=== PATIENT | male | born 1945 | race Caucasian/White ===

== ENCOUNTER → 2020-01-26 | Outpatient (CLI) | payer OTHER ==
[~2020-01-26] VITALS: Ht 182.9 cm; Wt 77.1 kg
[~2020-01-26] MED LIST: ELIQUIS5 MG PO; FLEXERIL PO; FLOMAX0.4 MG PO; NORVASC5 M1 PO; TYLENOL ARTHRI650 MG PO
--- NOTE | ~2020-01-26 | HPC ---
[facility] [address] [place] [address] PAIN MANAGEMENT CONSULTATION Name: MINH ANTONIO Room #: REG DINORA Sin.#: [id number] Admission: 01/26/20 Attend Phys: Kenan Burger MD Discharge: Date of : 43 Report #: [id number] THIS REPORT FOR: cc: Avi Anaya MD,Avi Burger,Kenan Butcher MD ~ CC: Avi Burger DATE OF SERVICE: 01/26/2020 CHIEF COMPLAINT: Low back pain radiating into both legs. 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 He likes to drive his heavy equipment and has a C7 dozer 230 horse power! Over the course of last year, this gentleman who has been very active all his life has started to experience pain that radiates down into his legs from his mid back. He scores his pain as an 8 or 9. He has some claudication like symptoms. Over the last 3 months, the pain has gotten much worse. Pain drawing shows pain in the L5-S1 distribution. An MRI scan was performed and was reviewed today in the clinic. It shows multiple levels of degenerative disease with severe spinal stenosis and left lateral recess stenosis at L2-L3, impinging on the left nerve roots. There is also severe spinal stenosis at L3-L4 and moderate spinal stenosis at L4-L5. Impingement of descending nerve roots is seen at each of these levels. MEDICATIONS: Eliquis, amlodipine, tamsulosin, cyclobenzaprine, Tylenol. ALLERGIES: None. PAST MEDICAL HISTORY: Hypertension and some renal problems as he describes it. There were stents placed and stones removed. Musculoskeletal is positive for rotator cuff surgery with Dr. Juan Herron in 2009 and an anterior cervical diskectomy and fusion performed in 2017 at [facility]. REVIEW OF SYSTEMS: Positive for some dyspnea on exertion, frequent urination and nocturia with incontinence on occasion. SOCIAL HISTORY: Active white. Denies use of tobacco, drinks alcohol, 1 glass of wine or beer a few times a week, not nightly. PHYSICAL EXAMINATION: [facility] [address] [place] [address] PAIN MANAGEMENT CONSULTATION Name: MINH ANTONIO Room #: REG [facility].#: [id number] Admission: 01/26/20 Attend Phys: Kenan Burger MD Discharge: Date of : 43 Report #: [id number] GENERAL: He is a very pleasant, outgoing 74-year-old gentleman. Moves independently from sitting to standing position. His gait is antalgic. He has difficulty straightening. VITAL SIGNS: Blood pressure is 138/71, heart rate 62, respirations 16, O2 sat 99. He is 6 feet tall, 170 pounds with a BMI of 23.1. CHEST: Clear. CARDIAC: Rhythm was regular, without any audible murmur or atrial fibrillation. It should be noted that he had an episode of atrial fibrillation in July, was placed on Eliquis. He has been stable since that time without recurring evidence of atrial fibrillation. ABDOMEN: Soft. MUSCULOSKELETAL: Examination of the spine reveals mild tenderness across the lumbosacral segment. Bilateral straight leg raising discomfort, which reproduces some pain into the lateral thigh and hip. IMPRESSION: Severe spinal stenosis, multilevel. RECOMMENDATION: We need to take him off his Eliquis for at least 3 days and I will be glad to trial an epidural steroid injection. If pain relief is substantial and with good duration, we can continue these in the future. Followup visit planned early next week for epidural. Dr. Umaña has suggested a possible need for multilevel decompression, but would still like to avoid that. Hopefully, injections will help. Multilevel decompression might be indicated. By: [id number] Kenan Burger MD /nt
[2020-01-26 13:22] VITALS: BP 138/71
--- NOTE | 2020-01-26 13:56 | NUR ---
Pain Clinic Assessment: 1. History of Osteoarthritis: spine History of Rheumatoid Arthritis: Not Applicable 2. Height: 6 ft. 0 in. 182.9 cm. Weight: 170.0 lb. oz. 77.112 kg. Patient's BMI: 23.1 3. Vital Signs: BP: 138/71 Pulse: 62 Resp: 16 Temp: 02 Sat: 99 ECG Mon: 4. Pain Intensity: 8-9 5. Fall Risk: Dizziness: N Needs help standing or walking: N Fallen in the last 3 months: N Fall risk comments: 6. Patient on Blood Thinner: eliquis 7. History of Hypertension: Y 8. Opioid Therapy greater than 6 weeks: N Opiate Contract Signed: 9. Risk Assessment Tool Provided: low-0 10. Functional Assessment Tool: 11. Recreational Drug Use: Never Drug Type: Tobacco Use: Never Smoker Tobacco Type: Amount or Packs/day: How Many Years: Alcohol Use: Yes Frequency: Quant: 1 GLASS WINE OR 1 BEER NOT DAILY
== END ==
LOC: PAIN 07:03
DX: M48.061 Spinal stenosis, lumbar region without neurogenic claudication (principal); Z79.899 Other long term (current) drug therapy

== ENCOUNTER → 2020-01-30 | Outpatient (CLI) | payer OTHER ==
[~2020-01-30] VITALS: Ht 182.9 cm; Wt 80.0 kg
--- NOTE | ~2020-01-30 | HPC ---
[facility] [place] [address] PAIN MANAGEMENT CONSULTATION Name: MINH ANTONIO Room #: REG DINORA Sin.#: [id number] Admission: 01/30/20 Attend Phys: Kenan Burger MD Discharge: Date of : 43 Report #: [id number] THIS REPORT FOR: cc: Avi Anaya MD,Avi Burger,Kenan Butcher MD ~ CC: Avi Burger DATE OF SERVICE: 01/30/2020 Followup visit for epidural injection. I saw the patient just last week. He is here now 4 days later for epidural steroid injection under fluoroscopic guidance. I reviewed my report from last week and I have reviewed his x-rays. Fairly significant tight severe spinal stenosis, multilevel. We will inject him today at L3-4. Potential benefits and risks were discussed with the patient. He is anxious to proceed. PROCEDURE: After informed consent, he was taken to the fluoroscopic suite, placed in the prone position. Skin was prepped at L3-L4. Using biplanar fluoroscopic views, I advanced needle into the epidural space in the first attempt using loss of resistance. A 0.25 mL of Omnipaque was injected and spread of dye in the epidural space, was seen at midline. It was then followed by a slow injection of 3 mL of 0.5% lidocaine mixed with 80 mg of triamcinolone. He tolerated the procedure well. There were no complications. It was uncomfortable to inject into this area of tight stenosis, but hopefully good spread was achieved through the areas of stenosis. Followup visit planned in 1-2 months. By: 1400 [id number] Kenan Burger MD /nt
[2020-01-30 13:23] VITALS: BP 118/72
--- NOTE | 2020-01-30 13:33 | NUR ---
Pain Clinic Assessment: 1. History of Osteoarthritis: spine History of Rheumatoid Arthritis: Not Applicable 2. Height: 6 ft. 0 in. 182.9 cm. Weight: 176.4 lb. oz. 80.015 kg. Patient's BMI: 23.9 3. Vital Signs: BP: 118/72 Pulse: 64 Resp: 14 Temp: 02 Sat: 100 ECG Mon: 4. Pain Intensity: 6 5. Fall Risk: Dizziness: N Needs help standing or walking: N Fallen in the last 3 months: Y Fall risk comments: 6. Patient on Blood Thinner: eliquis 7. History of Hypertension: Y 8. Opioid Therapy greater than 6 weeks: N Opiate Contract Signed: 9. Risk Assessment Tool Provided: low-0 10. Functional Assessment Tool: 11. Recreational Drug Use: Never Drug Type: Tobacco Use: Never Smoker Tobacco Type: Amount or Packs/day: How Many Years: Alcohol Use: Yes Frequency: Quant:
== END | disposition home or self-care (01) ==
LOC: PAIN 06:50
DX: M54.16 Radiculopathy, lumbar region (principal); G89.29 Other chronic pain; Z98.890 Other specified postprocedural states

== ENCOUNTER → 2020-05-03 | Outpatient (CLI) | payer OTHER ==
[~2020-05-03] VITALS: Ht 182.9 cm; Wt 76.9 kg
[~2020-05-03] MED LIST changes: +HYDROCODON-ACE1 EAC7 PO
[2020-05-03 14:13] VITALS: BP 119/65
--- NOTE | 2020-05-03 14:33 | NUR ---
Pain Clinic Assessment: 1. History of Osteoarthritis: spine History of Rheumatoid Arthritis: Not Applicable 2. Height: 6 ft. 0 in. 182.9 cm. Weight: 169.6 lb. oz. 76.930 kg. Patient's BMI: 23.0 3. Vital Signs: BP: 119/65 Pulse: 64 Resp: 16 Temp: 02 Sat: 100 ECG Mon: 4. Pain Intensity: 8 5. Fall Risk: Dizziness: N Needs help standing or walking: N Fallen in the last 3 months: N Fall risk comments: 6. Patient on Blood Thinner: eliquis 7. History of Hypertension: Y 8. Opioid Therapy greater than 6 weeks: N Opiate Contract Signed: 9. Risk Assessment Tool Provided: low-0 10. Functional Assessment Tool: 55/70 11. Recreational Drug Use: Never Drug Type: Tobacco Use: Never Smoker Tobacco Type: Amount or Packs/day: How Many Years: Alcohol Use: Yes Frequency: Weekly Quant: BEER
--- NOTE | 2020-05-11 15:51 | HPC ---
[facility] [address] [place] [address] PAIN MANAGEMENT CONSULTATION Name: MINH ANTONIO Room #: REG DINORA NarayanSiriaRamona.#: [id number] Admission: 05/03/20 Attend Phys: Kenan Burger MD Discharge: Date of : 43 Report #: [id number] THIS REPORT FOR: cc: CATERINA - Kavita family physician/PCP [facility] family physician/PCP Kenan Burger MD ~ CC: Avi Anaya MD [facility] physician/PCP Kenan Burger Boles DATE OF SERVICE: 05/03/2020 CHIEF COMPLAINT: Low back pain with radiculopathy. Severe spinal stenosis, L3-L4. The patient had about 2 months of really fine pain relief, significant reductions in pain in his back and his legs after his last epidural injection. His chides him today in the office for not taking him a little slower. 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 His would love it if he would slow down, but I do not see that happening unless he is absolutely forced to do it. His stenosis is bad enough that it may progress to the point where surgery is necessary. For right now, they are trying to avoid surgery and we will continue providing epidural injections at a periodic basis as long as they are helpful. PQRS REVIEW: Positive for spinal spondylosis, but otherwise he does not complain of a lot of other arthritis. He is a tall and lean with a BMI of 23.0 and appears fit for his age of 74. His blood pressure is 119/65, heart rate 64, respirations 16, O2 sat 100, pain intensity 8/10. He is not a fall risk, is on blood thinner, Eliquis, but it was discontinued for 4 days in anticipation of injection. He is also under treatment for hypertension. He takes no opioids, has an ORT score of 0 and denies use of tobacco. He enjoys drinking beer periodically. PHYSICAL EXAMINATION: Reveals a very pleasant, outgoing rancher, moves independently from sitting to standing position. Gait is antalgic. Tenderness over the low back where there is restricted range of motion. Positive straight leg raising noted bilaterally. IMPRESSION: Low back pain secondary to severe spinal stenosis, L3-L4. PROCEDURE: Epidural steroid injection under fluoroscopic guidance. [address] [address] PAIN MANAGEMENT CONSULTATION Name: MINH ANTONIO Room #: REG DINORA Valente#: [id number] Admission: 05/03/20 Attend Phys: Kenan Burger MD Discharge: Date of : 43 Report #: [id number] I did agree to provide him with a small prescription of [place] which he uses infrequently, but it helps at night sometimes when the pain is increasing after his epidural. 30 tablets were ordered. DESCRIPTION OF PROCEDURE: After informed consent, he was taken to the fluoroscopic suite, placed prone, skin prepped with ChloraPrep. Skin anesthetized over the L4-L5 interspace. A 20-gauge Tuohy epidural needle advanced first attempt in the epidural space with loss of resistance. There was no blood or CSF aspirated. A 1 mL of Omnipaque injected. Good spread of dye was observed into the epidural space, was followed by 3 mL of 0.5% lidocaine mixed with 80 mg of triamcinolone. He tolerated the procedure well and was observed for 45 minutes and discharged. Followup visit planned as needed. <ELECTRONICALLY SIGNED> By: Kenan Burger MD 05/11/20 1551 [id number] Kenan Burger MD /nt
--- NOTE | 2020-05-11 15:51 | HPC ---
[facility] [place] [address] PAIN MANAGEMENT CONSULTATION Name: MINH ANTONIO Room #: REG DINORA Vogt.#: [id number] Admission: 05/03/20 Attend Phys: Kenan Burger MD Discharge: Date of : 43 Report #: [id number] THIS REPORT FOR: cc: CATERINA - No family physician/PCP CATERINA - No family physician/PCP Kenan Burger MD ~ CC: [facility] physician/PCP Kenan Burger DATE OF SERVICE: 05/03/2020 Followup visit for degenerative disk disease with radiculopathy. The patient had excellent pain relief for 2 months following his initial epidural injection on 01/30/2020. He has returned today for a second injection. To say he is active is an understatement. 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 His is here to scold him for all of the activities that he undertakes. 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 He discontinued his Eliquis in anticipation of another injection today. Last dose of Eliquis was on 04/29/2020. He is also treated for hypertension. We will review of his medications. He has osteoarthritis, mostly within the spine with spondylosis. BMI is 23.9. Blood pressure 118/72, heart rate 64, respirations 14, pain intensity 6/10. He is not a fall risk. Denies use of tobacco and alcohol. He is not taking regular opioids, but I agreed to provide him with a small prescription of hydrocodone 5/325 for use when the pain is severe and it is difficult for him to sleep. IMPRESSION: Lumbar radiculopathy. PROCEDURE: Epidural steroid injection under fluoroscopic guidance. After informed consent, he was taken to the fluoroscopic suite for the injection. He was placed in a prone position. Skin was prepped with ChloraPrep. Skin was anesthetized over the L3-L4 interspace. A 20-gauge Tuohy epidural needle advanced on the first attempt in the epidural space with loss of resistance technique. There was no blood nor CSF aspirated. A 1 mL of Omnipaque injected. Good spread of dye observed. It was then followed by 3 mL [facility] [address] [place] [address] PAIN MANAGEMENT CONSULTATION Name: MINH ANTONIO Room #: REG [facility].#: [id number] Admission: 05/03/20 Attend Phys: Kenan Burger MD Discharge: Date of : 43 Report #: [id number] of 0.5% lidocaine mixed with 80 mg triamcinolone. He tolerated the procedure well and there were no complications. Followup visit planned as needed. <ELECTRONICALLY SIGNED> By: Kenan Burger MD 05/11/20 1551 1535 13 Kenan Burger MD /nt
== END | disposition home or self-care (01) ==
LOC: PAIN 08:19
PROVIDERS: ATTEND Anesthesiology Pain Medicine
DX: M48.061 Spinal stenosis, lumbar region without neurogenic claudication (principal); M54.16 Radiculopathy, lumbar region; G89.29 Other chronic pain; I10 Essential (primary) hypertension; Z98.890 Other specified postprocedural states; Z79.899 Other long term (current) drug therapy; Z79.01 Long term (current) use of anticoagulants

== ENCOUNTER → 2020-09-03 | Outpatient (CLI) | payer OTHER, BC ==
[~2020-09-03] VITALS: Ht 182.9 cm; Wt 76.1 kg
--- NOTE | ~2020-09-03 | HPC ---
[facility] [address] [place] [address] PAIN MANAGEMENT CONSULTATION Name: MINH ANTONIO Room #: REG DINORA Vogt.#: [id number] Admission: 09/03/20 Attend Phys: Kenan Burger MD Discharge: Date of : 43 Report #: [id number] CC: [facility] physician/PCP Kenan Burger DATE OF SERVICE: 09/03/2020 Followup visit for severe spinal stenosis, L3-L4, L4-L5 with neurogenic claudication and radiculopathy. The patient is here today to discuss further options and treatments for his severe leg pain. His pain is almost exclusively with standing and weightbearing. 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 When he is in his comfortable chair in his equipment, he can ride comfortably. When asked to get out and walk, he has neurogenic claudication with development in spinal stenotic pain radiating into both legs. We reviewed his MRI. We discussed the changes that have occurred resulting in a nerve pain. He has been taking hydrocodone sparingly and also cyclobenzaprine, which helps at night, but causes urinary retention. I am going to start him on gabapentin. He has had two epidurals, the first was helpful for a couple of months, the second one not so much. They were both similar at the same space. We discussed just a small change in the location of the tip of the needle within the epidural space might spread medication a bit more cephalad or caudad depending on location of the stenosis. Today, we will try and inject above the stenosis at L3-L4. Previously, we were nearly directly at the stenosis. PHYSICAL EXAMINATION: GENERAL: He is a pleasant slender gentleman. VITAL SIGNS: Blood pressure 128/69, heart rate 54, respirations 14, O2 sat 100% on room air. He is wearing a mask due to COVID restrictions. PQRS: Positive for some diffuse, but manageable osteoarthritis of the spine with spondylosis. Pain intensity 6/10 with standing, 0 walking. He is on the blood thinner, Eliquis, but discontinued 7 days ago. History of hypertension, none. Opioid agreement, none. Risk assessment score of 0. Functional assessment score is 55/70. This is a fairly significant number given the fact that he is a fairly stoic hard working 74-year-old. It is interfering dramatically with his pain. He does not smoke, drink alcohol every so often. IMPRESSION: Neurogenic claudication. Spinal stenosis secondary to a 2-level spinal stenosis. PROCEDURE: Epidural injection L3-L4 under fluoroscopic guidance. PROCEDURE NOTE: After informed consent, he was taken to the fluoroscopic suite, placed prone, skin prepped with ChloraPrep. Skin anesthetized over the L3-L4 interspace. A 20-gauge Tuohy epidural needle advanced easily into the epidural space using loss of resistance technique. There was no blood or CSF aspirated. A 0.25 mL of Omnipaque was injected. Good spread of dye was seen and we outlined the spinal stenotic area very nicely. It was not as uncomfortable as his previous injection and felt more as it did in his first injection. We slowly then injected 4 mL of 0.5% lidocaine mixed with 80 mg triamcinolone. He tolerated the procedure well and was taken to recovery room in good shape and was observed for 45 minutes before discharge. A followup visit is planned to see Dr. Wei and he is considered a second opinion as recommended by a family member. Surgery is a big step and a decompression laminectomy at 2 levels may require fusion. I do think that he should discuss his condition with Dr. Wei and if he is more comfortable, also get a second opinion. Gabapentin was ordered along with a titration sheet. By: [id number] Kenan Burger MD /lo
[2020-09-03 08:48] VITALS: BP 128/69
--- NOTE | 2020-09-03 09:10 | NUR ---
Pain Clinic Assessment: 1. History of Osteoarthritis: spine History of Rheumatoid Arthritis: Not Applicable 2. Height: 6 ft. 0 in. 182.9 cm. Weight: 167.8 lb. oz. 76.114 kg. Patient's BMI: 22.8 3. Vital Signs: BP: 128/69 Pulse: 54 Resp: 14 Temp: 02 Sat: 100 ECG Mon: 4. Pain Intensity: 6 5. Fall Risk: Dizziness: N Needs help standing or walking: N Fallen in the last 3 months: N Fall risk comments: 6. Patient on Blood Thinner: eliquis 7. History of Hypertension: N 8. Opioid Therapy greater than 6 weeks: N Opiate Contract Signed: 9. Risk Assessment Tool Provided: low-0 10. Functional Assessment Tool: 55/70 11. Recreational Drug Use: Never Drug Type: Tobacco Use: Never Smoker Tobacco Type: Amount or Packs/day: How Many Years: Alcohol Use: Yes Frequency: Weekly Quant: 1
== END | disposition home or self-care (01) ==
LOC: PAIN 08-16 10:21
PROVIDERS: ATTEND Anesthesiology Pain Medicine
DX: M48.062 Spinal stenosis, lumbar region with neurogenic claudication (principal); M54.16 Radiculopathy, lumbar region; G89.29 Other chronic pain; I10 Essential (primary) hypertension; Z98.890 Other specified postprocedural states; Z79.899 Other long term (current) drug therapy; Z79.01 Long term (current) use of anticoagulants

== ENCOUNTER → 2020-11-12 | Outpatient (CLI) | payer OTHER, BC ==
[~2020-11-12] VITALS: Ht 182.9 cm; Wt 77.5 kg
[2020-11-12 10:33] VITALS: BP 138/69
--- NOTE | 2020-11-12 10:53 | NUR ---
Pain Clinic Assessment: 1. History of Osteoarthritis: spine History of Rheumatoid Arthritis: Not Applicable 2. Height: 6 ft. 0 in. 182.9 cm. Weight: 170.8 lb. oz. 77.474 kg. Patient's BMI: 23.2 3. Vital Signs: BP: 138/69 Pulse: 50 Resp: 16 Temp: 02 Sat: 100 ECG Mon: 4. Pain Intensity: 5 5. Fall Risk: Dizziness: N Needs help standing or walking: N Fallen in the last 3 months: Y Fall risk comments: PT STATES HE HAS FALLEN 3 TIMES IN THE LAST 3 MONTHS. HE HAS DIFFICULTY PICKING HIS FEET UP AND STUMBLES SINCE THE SUMMER. DENIES INCONTINENCE. FEELS HE IS SLOWING DOWN. 6. Patient on Blood Thinner: natashaquis 7. History of Hypertension: N 8. Opioid Therapy greater than 6 weeks: N Opiate Contract Signed: 9. Risk Assessment Tool Provided: low-0 10. Functional Assessment Tool: 55/70 11. Recreational Drug Use: Never Drug Type: Tobacco Use: Never Smoker Tobacco Type: Amount or Packs/day: How Many Years: Alcohol Use: Yes Frequency: Weekly Quant: 1
== END | disposition home or self-care (01) ==
LOC: PAIN 06:59
PROVIDERS: ATTEND Anesthesiology Pain Medicine
DX: M54.16 Radiculopathy, lumbar region (principal); M48.061 Spinal stenosis, lumbar region without neurogenic claudication; Z98.890 Other specified postprocedural states; Z79.899 Other long term (current) drug therapy; Z79.01 Long term (current) use of anticoagulants